=== PATIENT | female | born 1975 | race African-American/Black ===

== ENCOUNTER 2025-04-17 13:00 | Outpatient (AMB) | payer OTHER, SELFPAY ==
--- NOTE | 2025-04-17 13:01 | A.OFFPC_ITS ---
Vital Signs 04/17/25 13:03 Height 5 ft 1.75 in Weight 194 lb 2 oz BMI 35.8 BP 120/82 Blood Pressure Location Lt brachial Position Sitting Respiration 16 Pulse 72 Pulse Source Pulse Oximeter Temp 97.1 F Temp Source Temporal Artery Scan Pulse Oximetry (%) 98 Oxygen Delivery Method Room Air Intake Visit Reasons: follow up, reestablish care [employer] Required: No Accompanied by: Self / Same As Patient Allergies codeine Allergy (Severe, Verified 04/17/25 13:05) swelling, unable to breath Medication List - Last Reconciled 04/17/25 by Geri Fuentes MD amlodipine 7.5 mg PO DAILY furosemide 10 mg PO DAILY PRN ondansetron 4 mg PO Q8H PRN propranolol 20 mg PO BID riboflavin (vitamin B2) 400 mg PO DAILY Tobacco use date assessed: 04/17/25 Dental Screening Dental Screen Date: 04/17/25 Did you have a dental visit in the last 12 months?: Yes Did you have a dental problem in the last 6 months where you did not have access to dental care?: No Was dental information given to patient?: Patient has dentist HPI HPI Comments History of Present Illness Details The patient is a 49-year-old female presenting to re-establish care and for management of chronic conditions. Obesity: The patient has lost 7 pounds over the last six months, with her weight decreasing from 201 lbs to 194 lbs. She attributes this to dietary changes, including a high-protein diet, and exercising at the gym twice a week. She reports feeling better overall with improved energy and better-fitting clothes. Hypertension: The patient is taking amlodipine 1.5 tablets (of 5 mg) daily and propranolol 20 mg twice daily for blood pressure management. She reports being adherent to her medication regimen. She has not recently required her PRN diuretic for swelling. Sleep Apnea: The patient has a history of sleep apnea and was recommended a dental device, but has not yet obtained one due to a lack of follow-up from a referred office. Migraine: The patient reports her migraines are well-controlled. She takes propranolol 20 mg twice daily and vitamin B2 (riboflavin) for migraine prophylaxis. Thyroid nodule- history of nodule, due for repeat ultrasound Medical History: - Hypertension - Obesity - Obstructive sleep apnea - Migraine Social History: - Employment: Patient works two jobs; sh e is the [employer] of an [employer] division and also works overnight for an agency. - Exercise: Attends the gym twice a week . - Diet: Reports a high-protein diet with meals consisting of meat and vegetables. Review of Systems - General: Reports improved energy level s and feeling better overall. - Constitutional: Reports 7-pound weight loss over 6 months. - Cardiovascular: Denies swelling or blo ating. - Gastrointestinal: no abdominal pain - Neurological: Reports migraines are we ll-controlled. Physical Exam - Gen: NAD -Lungs: Clear to auscultation bilaterall y. - Cardiovascular: Normal heart sounds, s oft murmur noted. - Abdomen: Soft, non-tender, and non-dis tended on palpation. Normoactive bowel sounds. Assessment and Plan 1. Hypertension - Blood pressure is well-controlled on c urrent medication. - Will continue amlodipine 7.5 mg daily and propranolol 20 mg twice daily. 2. Obesity - The patient has successfully lost 7 po unds in 6 months through diet and exercise. - She is encouraged to continue her effo rts with a goal of losing another 10 pounds in the next 6 months. - A fasting lipid panel and HbA1c will b e checked to monitor metabolic health. 3. Sleep Apnea - The patient has not yet acquired a den jose carlos device for her sleep apnea. - She is advised to consult her dentist for a recommendation. 4. Migraine - Well-controlled. - Will continue propranolol and vitamin B2 (riboflavin). 5. Health Maintenance - Will order fasting labs including a co mprehensive metabolic panel, iron profile, HbA1c, and a urine test for protein. -6. Thyroid ultrasound- An order for a thyroid ultrasound will be placed. - Follow up in 6 months for physical Discussion Notes I have discussed the plan of care with the patient. I have placed orders for fasting labs, which include an A1c to monitor her blood sugar due to her weight, a cholesterol profile, an iron profile , a comprehensive panel for liver and kidney function, and a urine test to check for protein. We discussed her successful weight loss of 7 pounds, and I encouraged her to continue her diet and exercise routine with a goal to lose another 10 pounds in the next six months. Regarding her sleep apnea, I advised her to speak with her own dentist to get a recommendation for a dental device, as the previous referral did not result in follow-up. Patient Instructions - Go to the lab for fasting blood work. - An order for a thyroid ultrasound has been placed. The scheduling team will call you to set up the appointment. - Talk to your own dentist about getting a dental device for your sleep apnea. - Continue taking your medications as pr escribed. - Continue with your current diet and ex ercise plan. We will aim for another 10- pound weight loss over the next six months. FORMERLY [facility], [facility]–1983 Medical History (Updated 04/17/25 @ 15:10 by Geri Fuentes MD) Thyroid nodule Migraines Obstructive sleep apnea Impaired fasting glucose Iron deficiency anemia Primary hypertension Surgical History (Updated 04/16/25 @ 18:42 by Geri Fuentes MD) H/O: hysterectomy History of sleeve gastrectomy History of History of colonoscopy (~10/06/21) Family History (Updated 04/16/25 @ 18:45 by Geri Fuentes MD) Father Coronary artery disease Maternal Grandfather Brain aneurysm Mother Primary hypertension Hypothyroidism Social History Housing: House Patient Tobacco Use Status: Former Tobacco user Years Smoked: 25 e-Cigarette/Vaping Use: Currently Using Current occupational status: employed 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 1. Little interest or pleasure in doing things: not at all 2. Feeling down, depressed, or hopeless: not at all 3. Trouble falling or staying asleep, or sleeping too much: not at all 4. Feeling tired or having little energy: several days 5. Poor appetite or overeating: not at all 6. Feeling bad about yourself - or that you are a failure or have let yourself or your family down: not at all 7. Trouble concentrating on things, such as reading the newspaper or watching television: not at all 8. Moving or speaking so slowly that other people could have noticed. Or the opposite - being so fidgety or restless that you have been moving around a lot more than usual: not at all 9. Thoughts that you would be better off or of hurting yourself in some way: not at all Total score: 1 Depression Screening Interpretation: Negative Depression Screening Done: Yes 80294 - PHQ-9 Billing: Yes Source: Developed by Drs. Dimitrios Rodriguez, Tata Villatoro, Fabrizio Stevens and colleagues, with an educational josi from [employer]. Thrive Questionnaire Date Thrive assessed: 04/17/25 I am a: Patient What is your living situation today?: I have a steady place to live Within the past 12 months, did the food you bought not last and you didn't have the money to get more?: Never true Within the past 12 months, did you worry whether your food would run out before you got money to buy more?: Never true Do you have trouble paying for medicines?: No Do you have trouble getting transportation to medical appointments?: No Do you have trouble paying your heating and electricity bill?: No Do you have trouble taking care of your child, family member or friend?: No Do you have trouble with day-to-day activities such as bathing, preparing meals, shopping, managing finances, etc.?: No Are you currently unemployed and looking for a job?: No Are you interested in more education?: No Please select the resources that you would like help with: None THRIVE Score: 0 AUDIT C Alcohol Use Questionnaire (AUDIT-C) 1. How often do you have a drink containing alcohol?: 4 or more times a week 2. How many drinks containing alcohol do you have on a typical day when you are drinking?: 1 or 2 3. How often do you have six or more drinks on one occasion?: Never Total Score: 4 EMY-7 AMB Questionnaire EMY-7 Date EMY - 7 assessed: 04/17/25 Feeling nervous, anxious, or on edge: 0 = Not at all Not being able to stop or control worryin = Not at all Worrying too much about different things: 1 = Several days Trouble relaxin = Several days Being so restless that it is hard to sit still: 0 = Not at all Becoming easily annoyed or irritable: 1 = Several days Feeling afraid as if something awful might happen: 0 = Not at all Total EMY-7 score (0-4 normal; 5-9 mild; 10-14 moderate; 15-21 severe): 3 Source: Developed by Tata Lott Kurt Kroenke and colleagues, with an educational josi from [employer]. Physical exam (Primary Care) Vital Signs: Last Vital Signs Temp 97.1 F 04/17/25 13:03 Pulse 72 04/17/25 13:03 Resp 16 04/17/25 13:03 BP 120/82 04/17/25 13:03 Pulse Ox 98 04/17/25 13:03 Oxygen Delivery Method Room Air 04/17/25 13:03 BMI result Body Mass Index 35.8 Tobacco/Smoking Status: Tobacco use Status Tobacco use date assessed 04/17/25 04/17/25 13:10 Patient Tobacco Use Status Former Tobacco user 04/17/25 13:10 e-Cigarette/Vaping Use Currently Using (rarely) 04/17/25 13:10 PHQ-9: PHQ-9 Score PHQ-9: Total score 1 04/17/25 15:10 Depression Screening Interpretation: Negative Thrive Assessment: Date of Thrive Assessment Date Thrive assessed 04/17/25 04/17/25 13:50 Coding Level of Care Code Est Pt Level 4 (66274) Complex EM visit Add On G2211 Diagnoses Primary hypertension I10 Impaired fasting glucose R73.01 Thyroid nodule E04.1 Iron deficiency anemia, unspecified iron deficiency anemia type D50.9 Iron deficiency anemia type: unspecified iron deficiency Additional Codes PHQ-9 - 00792 - PHQ-9 Billing: Yes ([id number]) Assessment & Plan Assessment & Plan (1) Primary hypertension: Code(s): I10 - Essential (primary) hypertension Category: Medical (2) Impaired fasting glucose: Code(s): R73.01 - Impaired fasting glucose Category: Medical (3) Thyroid nodule: Code(s): E04.1 - Nontoxic single thyroid nodule Category: Medical (4) Iron deficiency anemia: Code(s): D50.9 - Iron deficiency anemia, unspecified Category: Medical Qualifiers: Iron deficiency anemia type: unspecified iron deficiency Qualified Code(s): D50.9 - Iron deficiency anemia, unspecified Plan - Orders placed for fasting labs: comprehensive metabolic panel, HbA1c, iron profile, and urine for protein. - Order placed for a thyroid ultrasound - Patient advised to follow up with her dentist regarding a dental device for sleep apnea. - Encourage continued weight loss efforts, with a goal of an additional 10-pound loss in the next six months. Orders: Orders Hemoglobin A1c Today D50.9 - Iron deficiency anemia, unspecified, E04.1 - Nontoxic single thyroid nodule, I10 - Essential (primary) hypertension, R73.01 - Impaired fasting glucose Ferritin Today D50.9 - Iron deficiency anemia, unspecified, E04.1 - Nontoxic single thyroid nodule, I10 - Essential (primary) hypertension, R73.01 - Impaired fasting glucose Comprehensive Met. Panel Today D50.9 - Iron deficiency anemia, unspecified, E04.1 - Nontoxic single thyroid nodule, I10 - Essential (primary) hypertension, R73.01 - Impaired fasting glucose US thyroid Today E04.1 - Nontoxic single thyroid nodule Complete Blood Count Auto Diff Today D50.9 - Iron deficiency anemia, unspecified, E04.1 - Nontoxic single thyroid nodule, I10 - Essential (primary) hypertension, R73.01 - Impaired fasting glucose IRON PROFILE Today D50.9 - Iron deficiency anemia, unspecified, E04.1 - Nontoxic single thyroid nodule, I10 - Essential (primary) hypertension, R73.01 - Impaired fasting glucose Microalbumin, Random (w Creat) Today D50.9 - Iron deficiency anemia, unspecified, E04.1 - Nontoxic single thyroid nodule, I10 - Essential (primary) hypertension, R73.01 - Impaired fasting glucose TSH reflex Free T4 Today D50.9 - Iron deficiency anemia, unspecified, E04.1 - Nontoxic single thyroid nodule, I10 - Essential (primary) hypertension, R73.01 - Impaired fasting glucose Medications: New amlodipine 7.5 mg (1.5 x 5 mg) PO DAILY 135 tabs 3RF propranolol 20 mg PO BID 180 tabs 3RF
[2025-04-17 13:03] VITALS: BP 120/82; PULSE 72; RESP 16; TEMP 36.2; O2SAT 98; BMI 35.8
== END 2025-04-17 13:44 | disposition home or self-care (01) ==
LOC: HO.HMCHD 13:01
PROVIDERS: PCP Internal Medicine; Visit Provider Internal Medicine
DX: I10 Essential (primary) hypertension (principal); R73.01 Impaired fasting glucose; E04.1 Nontoxic single thyroid nodule; D50.9 Iron deficiency anemia, unspecified

== ENCOUNTER → 2025-04-17 13:00 | Outpatient (BNVA) | payer OTHER, SELFPAY | PROVIDERS: PCP Internal Medicine; Visit Provider Internal Medicine | DX: I10 Essential (primary) hypertension (principal); R73.01 Impaired fasting glucose; E04.1 Nontoxic single thyroid nodule; D50.9 Iron deficiency anemia, unspecified; G47.30 Sleep apnea, unspecified; G43.909 Migraine, unspecified, not intractable, without status migrainosus; E66.9 Obesity, unspecified; Z68.35 Body mass index [BMI] 35.0-35.9, adult; Z13.31 Encounter for screening for depression; Z13.39 Encounter for screening examination for other mental health and behavioral disorders | CPT/HCPCS: 96127 ==

== ENCOUNTER 2025-05-11 10:08 | Outpatient (REF) | payer OTHER, SELFPAY ==
[2025-05-11 11:11] LABS: MANUAL DIFF FLAG NO
[2025-05-11 11:20] LABS: Hematocrit 39.5 % (37.0-47.0); Hemoglobin 13.0 g/dl (12.0-16.0); Imm Gran Abs Auto 0.01 X10*3/uL (0.00-0.03); Imm Gran Pct Auto 0.1 % (0.0-0.4); Lymphocytes Absolute Auto 2.4 X10*3/uL (1.2-4.9); Mean Corpuscular HGB Conc 32.9 g/dl (31.0-35.0); Mean Corpuscular Hemoglobin 28.1 pg (27.0-33.0); Mean Corpuscular Volume 85.5 fL (80.0-98.0); NRBC Abs Auto 0.000 X10*3/uL (0.0-0.012); NRBC Pct Auto 0.0 /100WBC (0.0-0.2); Platelet Count 324 X10*3/uL (160-400); Red Blood Count 4.62 X10*6/uL (4.20-5.50); White Blood Count 7.0 X10*3/uL (4.8-10.8)
[2025-05-11 11:55] LABS: Alanine Aminotransferase 19 U/L (0-31); Albumin Level 4.4 g/dL (3.5-5.0); Alkaline Phosphatase 78 U/L (39-117); Anion Gap 12 (12-20); Aspartate Amino Transferase 20 U/L (5-31); Blood Urea Nitrogen 11 mg/dL (9-16); Calcium 9.4 mg/dL (8.4-10.2); Carbon Dioxide 28 mmol/L (22-29); Chloride 108 mmol/L (96-108); Estimated Glomerular Filt Rate > 60; Iron 66 mcg/dL (30-160); Percent Iron Saturation 23 % (15-50); Potassium 3.9 mmol/L (3.3-5.1); Sodium 144 mmol/L (135-145); Total Iron Binding Capacity 285 mcg/dL (228-428); Total Protein 7.8 g/dL (6.5-8.0); Unsaturated Iron Binding 219 ug/dL
[2025-05-11 12:14] LABS: Ferritin 111 ng/mL (10-250)
== END 2025-05-11 10:09 | disposition home or self-care (01) ==
LOC: HO.HMGCLDS 10:08
PROVIDERS: PCP Internal Medicine; Visit Provider Internal Medicine
DX: I10 Essential (primary) hypertension (principal); R73.01 Impaired fasting glucose; E04.1 Nontoxic single thyroid nodule; D50.9 Iron deficiency anemia, unspecified
CPT/HCPCS: 36415; 80053; 82728; 83036; 83540; 84443; 85025